=== PATIENT | female | born 1970 | race Caucasian/White ===

== ENCOUNTER 2019-06-08 10:02 | Day surgery (SDC) | payer OTHER ==
[2019-05-31 12:34] VITALS: BMI 25.3
[2019-06-08 11:06] VITALS: TEMP 98.4
[2019-06-08] MEDS ORDERED: PHENYLEPHRINE HCL 10 MG/1 ML SINGLE DOSE VIAL ONE (11:25)
[2019-06-08] MEDS ORDERED: PROPOFOL 20 ML ONE (11:25)
[2019-06-08] MEDS ORDERED: MIDAZOLAM HCL 2 MG/2 ML SINGLE DOSE VIAL ONE (11:32)
[2019-06-08 12:25] VITALS: BP 114/76; PULSE 78
--- NOTE | 2019-06-09 16:51 | PATH ---
Surgical Pathology Report Patient Name: [facility]VI[facility]. Rec. #: [id number] /Age/Gender: 1970 (Age: 49) / F Account: [id number] Location: [facility] Taken: 06/08/2019 Received: 06/08/2019 Reported: 06/09/2019 Physicians: Malka Alston M.D. Specimen(s) Received A: RANDOM CECUM/RIGHT COLON B: LIPOMATOUS VALVE C: RANDOM TRANSVERSE COLON D: RANDOM DESCENDING COLON E: RANDOM RECTUM Clinical History Diarrhea Postoperative diagnosis: Lipomatous valve, hemorrhoids Final Diagnosis A. RANDOM CECUM, RIGHT COLON, BIOPSY: COLONIC MUCOSA WITHOUT SIGNIFICANT PATHOLOGIC FINDINGS. B. LIPOMATOUS VALVE, BIOPSY: COLONIC MUCOSA WITH FOCAL ACTIVE COLITIS. SEE COMMENT. C. RANDOM TRANSVERSE COLON, BIOPSY: POLYPOID COLONIC MUCOSA WITH PROMINENT LYMPHOID AGGREGATE. D. RANDOM DESCENDING COLON, BIOPSY: COLONIC MUCOSA WITH FOCAL ACTIVE COLITIS. SEE COMMENT. E. RANDOM RECTUM, BIOPSY: COLONIC MUCOSA WITH MILD LAMINA PROPRIA HEMORRHAGE. Comment: Findings are non-specific. Although acute self-limited colitis is a consideration, among other conditions, the possibility of early inflammatory bowel disease cannot be completely excluded. Suggest clinical/radiologic correlation. Electronically Signed Malka Hewitt M.D. Gross Description A. Received in formalin, labeled "biopsy random cecum/right colon" is a silverman, irregular portion of soft tissue measuring 0.5 cm. in greatest dimension. The specimen is submitted in toto in one cassette. B. Received in formalin, labeled "biopsy lipomatous valve" are 3 silverman, irregular portions of soft tissue ranging from 0.2-0.3 cm. in greatest dimension. The specimens are submitted in toto in one cassette. C. Received in formalin, labeled "biopsy random transverse colon" is a silverman, irregular portion of soft tissue measuring 0.4 cm. in greatest dimension. The specimen is submitted in toto in one cassette. D. Received in formalin, labeled "biopsy random descending colon" is a silverman, irregular portion of soft tissue measuring 0.9 cm. in greatest dimension. The specimen is submitted in toto in one cassette. E. Received in formalin, labeled "biopsy random rectum" is a silverman, irregular portion of soft tissue measuring 0.6 cm. in greatest dimension. The specimen is submitted in toto in one cassette. DL/06/08/2019 saudi06/08/2019
== END 2019-06-08 12:30 | disposition home or self-care (01) ==
LOC: FASU-ENDO 10:02
PROVIDERS: ATTEND Internal Medicine Gastroenterology
PROC: 0DBL8ZX Excision of Transverse Colon, Via Natural or Artificial Opening Endoscopic, Diagnostic (ICD-10-PCS; 2019-06-08)
PROC: 0DBP8ZX Excision of Rectum, Via Natural or Artificial Opening Endoscopic, Diagnostic (ICD-10-PCS; 2019-06-08)
PROC: 0DBC8ZX Excision of Ileocecal Valve, Via Natural or Artificial Opening Endoscopic, Diagnostic (ICD-10-PCS; 2019-06-08)
PROC: 0DBM8ZX Excision of Descending Colon, Via Natural or Artificial Opening Endoscopic, Diagnostic (ICD-10-PCS; principal; 2019-06-08 11:24)
DX: K52.89 Other specified noninfective gastroenteritis and colitis (principal); K64.0 First degree hemorrhoids
CPT/HCPCS: 82962